=== PATIENT | male | born 1945 | race Caucasian/White ===

== ENCOUNTER 2016-10-06 18:44 | Observation (INO) | payer OTHER ==
[~2016-10-06] VITALS: Ht 177.8 cm; Wt 76.3 kg
[~2016-10-06 18:44] MED LIST: ALBUTEROL2.5 MG/3 M IH; ASPIR-LOW81 MG PO; ASPIRIN81 M2 PO; ATENOLOL50 MG PO; ATORVASTATIN CA80 MG PO; AZITHROMYCIN500 M1 PO; Aspirin E.C. PO; Betapace,Sorine PO; CARDIZEM CD,CA120 MG PO; CARDIZEM CD120 MG PO; CARDIZEM30 MG PO; CARTIA XT120 MG PO; CELEXA40 MG PO; CEPHALEXIN500 MG PO; COMBIVENT RESPIM4 GM IH; Colace PO; Coumadin,Jantoven PO; DIGITEK250 MC2 PO; DIGOX250 MCG PO; DIGOXIN250 MCG PO; DULOXETINE HCL30 MG PO; ELAVIL50 MG PO; Elavil PO; FLOMAX0.4 MG PO; FLONASE16 G1 BOTH NARES; FLORANEX CHE1 TABLET PO; Flomax PO; GABAPENTIN300 MG PO; HYDROCODON-ACE1 EAC7 PO; HYDROXYZINE HCL10 MG PO; IPRATROPIU0.2 MG/1 M IH; KEFLEX500 MG PO; LEVAQUIN500 MG PO; LEVAQUIN750 MG PO; LEVOFLOXACIN750 MG PO; LO-DOSE ASPIRIN81 M2 PO; LOPRESSOR50 MG PO; LYRICA150 MG PO; Lanoxin,Digitek PO; Lasix PO; MELATIN3 MG PO; METOPROLOL TART50 MG PO; MOBIC15 MG PO; MOBIC7.5 MG PO; MOTRIN800 MG PO; Neurontin PO; OMEPRAZOLE20 MG PO; OMEPRAZOLE40 M1 PO; OXYCODONE HCL5 MG PO; PERCOCET 5/31 TABLET PO; PLAVIX75 MG PO; PREDNISONE10 M1 PO; PREDNISONE10 MG PO; PREDNISONE50 MG PO; PROPECIA1 MG PO; PROVENTIL,2.5 MG/3 M IH; PriLOSEC PO; Proventil,Ventolin H IH; ROXICODONE5 MG PO; SEROQUEL100 MG PO; SEROQUEL50 MG PO; SEROquel PO; SOTALOL80 MG PO; TENORMIN50 MG PO; Tenormin PO; ULTRAM50 MG PO; VENTOLIN HFA18 GM IH; VIBRAMYCIN100 MG PO; VOLTAREN 1% GE100 GM TP; WELLBUTRIN100 MG PO; WELLBUTRIN75 MG PO; ZITHROMAX Z-PA250 MG PO; ZOCOR80 MG PO; Zocor PO; [UNRECOGNIZED DRUG - OTHER] PO; celeXA PO
[2016-10-06 19:58] LABS: HEMATOCRIT 47.2 % (38.0-50.0); MCH 32.9 PG (29.0-34.0); MCHC 33.9 G/DL (30.0-36.0); MCV 97.1 FL (86-99); MEAN PLAT.VOLUME 9.9 uM^3 (9.0-12.4); PLATELET COUNT 174 K/uL (156-360); RBC DIS.WIDTH-CV 14.6 % (11.8-14.6); RBC DIS.WIDTH-SD 52.6 % (39-53); RED BLOOD COUNT 4.86 M/uL (4.00-5.50); WHITE BLOOD COUNT 8.1 K/uL (4.1-10.2)
[2016-10-06 19:59] LABS: CARBON DIOXIDE (BICARBONATE) 27.4 MEQ/L (20-31)
[2016-10-06 20:06] LABS: CHLORIDE 104 mEq/L (99-109); POTASSIUM 3.5 mEq/L (3.7-5.4); SODIUM 137 mEq/L (136-147)
[2016-10-06 20:08] LABS: GLUCOSE 118 mg/dL (70-99)
[2016-10-06 20:09] LABS: ANION GAP 9 MEQ/L (2-14)
[2016-10-06 20:12] LABS: GFR ESTIMATE (CALCULATED) > 59 mL/min/; UREA NITROGEN (BUN) 8 mg/dL (9-23)
[2016-10-06 20:18] LABS: TROP-I INTERPRETATION NEGATIVE; TROPONIN-I < 0.01 ng/mL (0.0-0.30)
[2016-10-06] MEDS ORDERED: CARDIZEM CD,CA120 MG PO (21:22)
[2016-10-06] MEDS ORDERED: METOPROLOL TART50 MG PO (21:23)
[2016-10-06] MEDS ORDERED: VOLTAREN 1% GE100 GM TP (21:25)
[2016-10-06] MEDS ORDERED: LYRICA150 MG PO (21:25)
[2016-10-06 22:05] LABS: ALKALINE PHOSPHATASE 141 IU/L (3-129)
[2016-10-06 22:06] LABS: ADD MIUA? YES; BILIRUBIN NEGATIVE; BLOOD NEGATIVE; COLOR YELLOW ((YELLOW)); GLUCOSE (STRIP) NEGATIVE; KETONES NEGATIVE; LEUKOCYTES TRACE; NITRITE NEGATIVE; PROTEIN (STRIP) NEGATIVE
[2016-10-06 22:07] LABS: DIRECT BILIRUBIN 0.4 mg/dL (0.0-0.3)
[2016-10-06 22:17] LABS: BACTERIA RARE /HPF; EPITHELIAL CELLS RARE /HPF; MUCUS TRACE /LPF; RED BLOOD CELLS 0-5 /HPF (0-5)
[2016-10-06 22:56] VITALS: BP 111/78
[2016-10-06 23:09] LABS: HDL CHOLESTEROL 45 MG/DL (Desirable>=40); LDL CHOLESTEROL 47 mg/dL (Desirable<100); NON-HDL CHOLESTEROL 66 mg/dL (Desirable<160); TOTAL CHOLESTEROL 111 mg/dL (Desirable<200); TRIGLYCERIDES 95 MG/DL (Normal: <150)
[2016-10-07 03:07] LABS: METH RESISTANT S AUREUS PCR NEGATIVE (NEGATIVE)
[2016-10-07 03:15] LABS: PROBE CHECK PASS; SPECIMEN PROCESSING CONTROL PASS
[2016-10-07 04:23] VITALS: BP 106/58
[2016-10-07 07:19] LABS: Estimated Average Glucose 91 mg/dL (70-123); HEMOGLOBIN A1c (GLYCOHEMOGLOB) 4.8 % HGB (Below 5.7)
[2016-10-07 08:00] VITALS: BP 108/65
[2016-10-07] MEDS ORDERED: LYRICA150 MG PO (08:27)
[2016-10-07] MEDS ORDERED: CIPROFLOXACIN H10 ML RIGHT EYE (08:30)
[2016-10-07] MEDS ORDERED: VANTIN200 MG PO (09:04)
[2016-10-07] MEDS ORDERED: CEFTIN500 MG PO (14:38)
[2016-10-07 15:07] VITALS: BP 119/65
== END 2016-10-07 15:27 | disposition home or self-care (01) ==
LOC: EME 18:44 → 5WEST 21:17 → EDOF 21:17 → 5WEST 22:57
PROVIDERS: Emergency Medicine; Hospitalist
DX: R42 Dizziness and giddiness (principal); N39.0 Urinary tract infection, site not specified; I45.10 Unspecified right bundle-branch block; R07.9 Chest pain, unspecified; I48.0 Paroxysmal atrial fibrillation; R53.1 Weakness; I10 Essential (primary) hypertension; I25.10 Atherosclerotic heart disease of native coronary artery without angina pectoris; Z86.73 Personal history of transient ischemic attack (TIA), and cerebral infarction without residual deficits; J44.9 Chronic obstructive pulmonary disease, unspecified; E78.5 Hyperlipidemia, unspecified; H10.9 Unspecified conjunctivitis; F17.200 Nicotine dependence, unspecified, uncomplicated; F12.90 Cannabis use, unspecified, uncomplicated; Z95.5 Presence of coronary angioplasty implant and graft
CPT/HCPCS: 70450; 71010; 74176; 80048; 80061; 80076; 81003; 82803; 83036; 83605; 83880; 84484; 85027; 87040; 87086; 87641; 93005; 99202; 99281; 99285; G0378; J0696; J1650; J2270; J2405; J7050

== ENCOUNTER 2016-10-12 20:23 | Emergency (ER) | payer OTHER ==
[~2016-10-12] VITALS: Ht 180.3 cm; Wt 78.3 kg
[~2016-10-12 20:23] MED LIST changes: +CEFTIN500 MG PO; +CIPROFLOXACIN H10 ML RIGHT EYE; +VANTIN200 MG PO
[2016-10-12 21:10] LABS: HEMATOCRIT 45.7 % (38.0-50.0); MCH 33.3 PG (29.0-34.0); MCHC 34.1 G/DL (30.0-36.0); MCV 97.6 FL (86-99); MEAN PLAT.VOLUME 10.4 uM^3 (9.0-12.4); PLATELET COUNT 202 K/uL (156-360); RBC DIS.WIDTH-CV 14.6 % (11.8-14.6); RED BLOOD COUNT 4.68 M/uL (4.00-5.50); WHITE BLOOD COUNT 7.2 K/uL (4.1-10.2)
[2016-10-12 21:18] LABS: CHLORIDE 105 mEq/L (99-109); POTASSIUM 4.2 mEq/L (3.7-5.4); SODIUM 139 mEq/L (136-147)
[2016-10-12 21:20] LABS: GLUCOSE 109 mg/dL (70-99)
[2016-10-12 21:21] LABS: ANION GAP 9 MEQ/L (2-14)
[2016-10-12 21:24] LABS: GFR ESTIMATE (CALCULATED) 53 mL/min/
[2016-10-12 21:25] LABS: UREA NITROGEN (BUN) 10 mg/dL (9-23)
[2016-10-12 21:32] LABS: TROP-I INTERPRETATION NEGATIVE; TROPONIN-I < 0.01 ng/mL (0.0-0.30)
[2016-10-12] MEDS ORDERED: LYRICA150 MG PO (22:42)
[2016-10-12 22:59] VITALS: BP 132/78
== END 2016-10-12 23:30 | disposition home or self-care (01) ==
LOC: EME → EDBD 20:23 → EME 20:23
PROVIDERS: Emergency Medicine
DX: G62.9 Polyneuropathy, unspecified (principal); I48.91 Unspecified atrial fibrillation; I69.354 Hemiplegia and hemiparesis following cerebral infarction affecting left non-dominant side; I50.9 Heart failure, unspecified; F32.9 Major depressive disorder, single episode, unspecified; J44.9 Chronic obstructive pulmonary disease, unspecified; E78.5 Hyperlipidemia, unspecified; I25.2 Old myocardial infarction; K21.9 Gastro-esophageal reflux disease without esophagitis; I25.10 Atherosclerotic heart disease of native coronary artery without angina pectoris; Z95.5 Presence of coronary angioplasty implant and graft; F17.200 Nicotine dependence, unspecified, uncomplicated; G89.29 Other chronic pain; N28.9 Disorder of kidney and ureter, unspecified; R06.02 Shortness of breath
CPT/HCPCS: 71010; 80048; 84484; 85027; 93005; 99281; 99284

== ENCOUNTER 2016-10-16 10:08 | Inpatient (IN) | payer OTHER ==
[~2016-10-16] VITALS: Ht 180.3 cm; Wt 74.5 kg
[2016-10-16 11:15] LABS: BASOPHIL COUNT 0.1 K/uL (0-0.1); EOSINOPHIL (%) 3.3 % (0-5); EOSINOPHIL COUNT 0.3 K/uL (0-0.3); HEMATOCRIT 51.4 % (38.0-50.0); IMMATURE GRANULOCYTE (%) 0.3 % (0.0-0.7); INSTRUMENT ABS NEUTROPHIL CT 4.9 K/uL; LYMPHOCYTE COUNT 1.8 K/uL (1.0-2.8); MCH 33.1 PG (29.0-34.0); MCHC 33.9 G/DL (30.0-36.0); MCV 97.9 FL (86-99); MEAN PLAT.VOLUME 10.2 uM^3 (9.0-12.4); MONOCYTE (%) 10.3 % (3-12); MONOCYTE COUNT 0.8 K/uL (0-0.8); NEUTROPHIL (%) 62.7 % (45-76); NEUTROPHIL COUNT 4.9 K/uL (1.8-6.4); RBC DIS.WIDTH-CV 14.4 % (11.8-14.6); RBC DIS.WIDTH-SD 52.1 % (39-53); RED BLOOD COUNT 5.25 M/uL (4.00-5.50); WHITE BLOOD COUNT 7.8 K/uL (4.1-10.2)
[2016-10-16 11:17] LABS: PLATELET COUNT 284 K/uL (156-360)
[2016-10-16 11:24] LABS: INTER. NORMALIZED RATIO 1.1
[2016-10-16 12:21] LABS: CHLORIDE 103 mEq/L (99-109); POTASSIUM 4.5 mEq/L (3.7-5.4); SODIUM 138 mEq/L (136-147)
[2016-10-16 12:22] LABS: GLUCOSE 87 mg/dL (70-99)
[2016-10-16 12:24] LABS: ANION GAP 7 MEQ/L (2-14)
[2016-10-16 12:26] LABS: GFR ESTIMATE (CALCULATED) 58 mL/min/
[2016-10-16 12:27] LABS: UREA NITROGEN (BUN) 8 mg/dL (9-23)
[2016-10-16 12:28] LABS: TROP-I INTERPRETATION NEGATIVE; TROPONIN-I < 0.01 ng/mL (0.0-0.30)
[2016-10-16] MEDS ORDERED: FLOMAX0.4 MG PO (15:18)
[2016-10-16] MEDS ORDERED: MELATIN3 MG PO (15:18)
[2016-10-16 16:15] VITALS: BP 177/96
[2016-10-16 17:03] LABS: POINT-OF-CARE METER ID UU14149397
[2016-10-16 20:28] VITALS: BP 131/70
[2016-10-16 23:51] VITALS: BP 136/94
[2016-10-17 05:23] VITALS: BP 147/93
[2016-10-17 06:32] LABS: POINT-OF-CARE METER ID UU14149397
[2016-10-17 06:56] LABS: POINT-OF-CARE METER ID UU14149397
[2016-10-17 07:35] VITALS: BP 116/82
[2016-10-17 07:48] LABS: MCH 32.8 PG (29.0-34.0); MCHC 32.8 G/DL (30.0-36.0); MCV 99.8 FL (86-99); MEAN PLAT.VOLUME 10.3 uM^3 (9.0-12.4); PLATELET COUNT 241 K/uL (156-360); RBC DIS.WIDTH-CV 14.6 % (11.8-14.6); RBC DIS.WIDTH-SD 54.3 % (39-53); RED BLOOD COUNT 4.61 M/uL (4.00-5.50)
[2016-10-17 08:12] LABS: ANION GAP 9 MEQ/L (2-14); CHLORIDE 102 MEQ/L (99-109); GFR ESTIMATE (CALCULATED) 58 mL/min/; POTASSIUM 4.3 MEQ/L (3.7-5.4); SAMPLE HEMOLYSIS CHECK 0; SAMPLE ICTERIC CHECK 0; SAMPLE LIPEMIA CHECK 0; SODIUM 136 MEQ/L (136-147); UREA NITROGEN (BUN) 14 mg/dL (9-23)
[2016-10-17 08:38] LABS: GLUCOSE 120 mg/dL (70-99)
[2016-10-17 11:30] VITALS: BP 131/84
[2016-10-17 16:00] VITALS: BP 112/78
[2016-10-17 22:31] LABS: POINT-OF-CARE METER ID UU14188577
[2016-10-18 00:05] VITALS: BP 102/74
[2016-10-18 07:39] LABS: POINT-OF-CARE METER ID UU14149397
[2016-10-18 08:00] VITALS: BP 109/71
[2016-10-18 11:52] LABS: POINT-OF-CARE METER ID UU14149397
[2016-10-18 15:43] VITALS: BP 126/85
[2016-10-18 16:43] LABS: POINT-OF-CARE METER ID UU14149397
[2016-10-19] VITALS: BP 119/76
[2016-10-19 07:02] LABS: POINT-OF-CARE METER ID UU14149397
[2016-10-19 07:50] VITALS: BP 118/67
[2016-10-19 11:33] LABS: POINT-OF-CARE METER ID UU14149397
[2016-10-19 16:46] VITALS: BP 130/68
[2016-10-19 18:34] LABS: ADD MIUA? YES; BILIRUBIN NEGATIVE; BLOOD NEGATIVE; COLOR YELLOW ((YELLOW)); GLUCOSE (STRIP) NEGATIVE; KETONES NEGATIVE; LEUKOCYTES SMALL; NITRITE NEGATIVE; PROTEIN (STRIP) NEGATIVE; UROBILINOGEN 0.2 MG/DL (0.2-1.0)
[2016-10-19 18:48] LABS: BACTERIA NONE SEEN /HPF; EPITHELIAL CELLS RARE /HPF; MUCUS NONE SEEN /LPF; WHITE BLOOD CELLS 0-5 /HPF (0-5)
[2016-10-19 23:56] VITALS: BP 131/77
[2016-10-20 07:54] VITALS: BP 127/76
[2016-10-20 10:24] LABS: HEMATOCRIT 44.1 % (38.0-50.0); MCH 33.3 PG (29.0-34.0); MCHC 32.7 G/DL (30.0-36.0); MCV 102.1 FL (86-99); RBC DIS.WIDTH-CV 14.6 % (11.8-14.6); RBC DIS.WIDTH-SD 55.5 % (39-53); RED BLOOD COUNT 4.32 M/uL (4.00-5.50); WHITE BLOOD COUNT 6.5 K/uL (4.1-10.2)
[2016-10-20 10:49] LABS: MEAN PLAT.VOLUME 10.5 uM^3 (9.0-12.4); PLAT.SUFFICIENCY ADEQUATE; PLATELET COUNT 259 K/uL (156-360)
[2016-10-20 10:54] LABS: ANION GAP 7 MEQ/L (2-14); CHLORIDE 102 MEQ/L (99-109); GFR ESTIMATE (CALCULATED) > 59 mL/min/; GLUCOSE 82 mg/dL (70-99); POTASSIUM 4.8 MEQ/L (3.7-5.4); SAMPLE HEMOLYSIS CHECK 0; SAMPLE ICTERIC CHECK 0; SAMPLE LIPEMIA CHECK 0; SODIUM 137 MEQ/L (136-147); UREA NITROGEN (BUN) 19 mg/dL (9-23)
[2016-10-20 15:30] VITALS: BP 131/78
[2016-10-21 00:19] VITALS: BP 124/68
[2016-10-21 08:51] VITALS: BP 126/70
[2016-10-21] MEDS ORDERED: ELIQUIS5 MG PO ×3 (12:06→13:21)
[2016-10-21] MEDS ORDERED: ENDOCET 5-3251 EACH PO (12:08)
[2016-10-21] MEDS ORDERED: LYRICA150 MG PO (12:08)
== END 2016-10-21 13:41 | disposition home health service (06) | DRG 176 ==
LOC: EME → EDBD 10:08 → EME 10:08 → EDOF 15:13 → 3EAST 15:13
PROVIDERS: Emergency Medicine; Internal Medicine; Physician Assistant; Urology
DX: I26.99 Other pulmonary embolism without acute cor pulmonale (principal); I69.354 Hemiplegia and hemiparesis following cerebral infarction affecting left non-dominant side; I48.92 Unspecified atrial flutter; J44.1 Chronic obstructive pulmonary disease with (acute) exacerbation; D75.1 Secondary polycythemia; C64.2 Malignant neoplasm of left kidney, except renal pelvis; G62.89 Other specified polyneuropathies; I48.2 Chronic atrial fibrillation; I10 Essential (primary) hypertension; R53.1 Weakness; Z91.14 Patient's other noncompliance with medication regimen; R91.8 Other nonspecific abnormal finding of lung field; I25.10 Atherosclerotic heart disease of native coronary artery without angina pectoris; E78.5 Hyperlipidemia, unspecified; K21.9 Gastro-esophageal reflux disease without esophagitis; F17.210 Nicotine dependence, cigarettes, uncomplicated; F12.90 Cannabis use, unspecified, uncomplicated; Z95.5 Presence of coronary angioplasty implant and graft; R09.02 Hypoxemia; G89.29 Other chronic pain
CPT/HCPCS: 71010; 71275; 76770; 80048; 81003; 82948; 83880; 84484; 85025; 85027; 85379; 85610; 85730; 87086; 93005; 93306; 93970; 97530 GO; 99281; 99285; J1815; J7030

== ENCOUNTER 2016-10-22 10:29 | Emergency (ER) | payer OTHER ==
[~2016-10-22] VITALS: Ht 177.8 cm; Wt 76.1 kg
[~2016-10-22 10:29] MED LIST changes: +ELIQUIS5 MG PO; +ENDOCET 5-3251 EACH PO
[2016-10-22 13:10] VITALS: BP 149/84
== END 2016-10-22 13:23 | disposition home or self-care (01) ==
LOC: EME → EDBD 10:29 → EDSEX 10:29 → EME 13:23
DX: I26.99 Other pulmonary embolism without acute cor pulmonale (principal); Z91.14 Patient's other noncompliance with medication regimen; M79.602 Pain in left arm; M79.605 Pain in left leg; R20.2 Paresthesia of skin; I48.91 Unspecified atrial fibrillation; E78.5 Hyperlipidemia, unspecified; J44.9 Chronic obstructive pulmonary disease, unspecified; Z79.82 Long term (current) use of aspirin; F17.200 Nicotine dependence, unspecified, uncomplicated
CPT/HCPCS: 99281; 99284

== ENCOUNTER 2016-10-30 09:55 | Emergency (ER) | payer OTHER ==
[~2016-10-30] VITALS: Ht 180.3 cm; Wt 89.1 kg
[2016-10-30 12:00] LABS: HEMATOCRIT 48.2 % (38.0-50.0); MCH 32.4 PG (29.0-34.0); MCHC 33.4 G/DL (30.0-36.0); RBC DIS.WIDTH-CV 14.5 % (11.8-14.6); RBC DIS.WIDTH-SD 52.2 % (39-53); RED BLOOD COUNT 4.97 M/uL (4.00-5.50); WHITE BLOOD COUNT 9.7 K/uL (4.1-10.2)
[2016-10-30 12:08] LABS: CHLORIDE 100 mEq/L (99-109); SODIUM 135 mEq/L (136-147)
[2016-10-30 12:10] LABS: GLUCOSE 71 mg/dL (70-99)
[2016-10-30 12:11] LABS: ANION GAP 12 MEQ/L (2-14)
[2016-10-30 12:14] LABS: GFR ESTIMATE (CALCULATED) > 59 mL/min/
[2016-10-30 12:15] LABS: UREA NITROGEN (BUN) 13 mg/dL (9-23)
[2016-10-30 12:18] LABS: TROP-I INTERPRETATION NEGATIVE; TROPONIN-I 0.03 ng/mL (0.0-0.30)
[2016-10-30 13:11] LABS: MEAN PLAT.VOLUME 10.3 uM^3 (9.0-12.4); PLAT.SUFFICIENCY INCREASED; PLATELET COUNT 223 K/uL (156-360)
[2016-10-30 13:51] VITALS: BP 132/94
== END 2016-10-30 13:51 | disposition home or self-care (01) ==
LOC: EME 09:55
DX: I48.91 Unspecified atrial fibrillation (principal); I26.99 Other pulmonary embolism without acute cor pulmonale; T46.1X6A Underdosing of calcium-channel blockers, initial encounter; Z91.120 Patient's intentional underdosing of medication regimen due to financial hardship; J44.9 Chronic obstructive pulmonary disease, unspecified; E78.5 Hyperlipidemia, unspecified; I50.9 Heart failure, unspecified; I25.10 Atherosclerotic heart disease of native coronary artery without angina pectoris; I25.2 Old myocardial infarction; Z95.5 Presence of coronary angioplasty implant and graft; K21.9 Gastro-esophageal reflux disease without esophagitis; F32.9 Major depressive disorder, single episode, unspecified; Z86.73 Personal history of transient ischemic attack (TIA), and cerebral infarction without residual deficits; F17.200 Nicotine dependence, unspecified, uncomplicated; Z85.828 Personal history of other malignant neoplasm of skin; Z79.01 Long term (current) use of anticoagulants; Z79.82 Long term (current) use of aspirin
CPT/HCPCS: 71020; 80048; 84484; 85027; 93005; 99281; 99284

== ENCOUNTER 2016-11-05 08:56 | Inpatient (IN) | payer OTHER ==
[~2016-11-05] VITALS: Ht 180.3 cm; Wt 78.2 kg
[2016-11-05 09:35] LABS: HEMATOCRIT 47.4 % (38.0-50.0); MCH 32.4 PG (29.0-34.0); MCHC 33.3 G/DL (30.0-36.0); MCV 97.3 FL (86-99); MEAN PLAT.VOLUME 10.2 uM^3 (9.0-12.4); PLATELET COUNT 175 K/uL (156-360); RBC DIS.WIDTH-CV 14.6 % (11.8-14.6); RBC DIS.WIDTH-SD 52.9 % (39-53); RED BLOOD COUNT 4.87 M/uL (4.00-5.50); WHITE BLOOD COUNT 7.3 K/uL (4.1-10.2)
[2016-11-05 09:45] LABS: INTER. NORMALIZED RATIO 1.1; PROTHROMBIN TIME 10.9 (9.2-11.2)
[2016-11-05 09:46] LABS: CHLORIDE 101 mEq/L (99-109); SODIUM 135 mEq/L (136-147)
[2016-11-05 09:48] LABS: GLUCOSE 84 mg/dL (70-99)
[2016-11-05 09:49] LABS: ANION GAP 12 MEQ/L (2-14)
[2016-11-05 09:52] LABS: GFR ESTIMATE (CALCULATED) > 59 mL/min/
[2016-11-05 09:53] LABS: UREA NITROGEN (BUN) 6 mg/dL (9-23)
[2016-11-05 09:59] LABS: TROP-I INTERPRETATION NEGATIVE; TROPONIN-I < 0.01 ng/mL (0.0-0.30)
[2016-11-05] MEDS ORDERED: CARDIZEM CD180 MG PO (12:51)
[2016-11-05] MEDS ORDERED: VOLTAREN 1% GE100 GM TP (12:51)
[2016-11-05] MEDS ORDERED: LYRICA75 MG PO (12:52)
[2016-11-05] MEDS ORDERED: ELIQUIS5 MG PO (12:53)
[2016-11-05 16:14] LABS: TROP-I INTERPRETATION NEGATIVE; TROPONIN-I < 0.01 ng/mL (0.0-0.30)
[2016-11-05 18:01] VITALS: BP 151/111
[2016-11-05 20:00] VITALS: BP 125/76
[2016-11-05 21:59] LABS: TROP-I INTERPRETATION NEGATIVE; TROPONIN-I < 0.01 ng/mL (0.0-0.30)
[2016-11-06] VITALS: BP 134/77
[2016-11-06 03:03] VITALS: BP 130/80
[2016-11-06 05:16] LABS: METH RESISTANT S AUREUS PCR NEGATIVE (NEGATIVE)
[2016-11-06 05:37] LABS: PROBE CHECK PASS; SPECIMEN PROCESSING CONTROL PASS
[2016-11-06 07:25] VITALS: BP 167/84
[2016-11-06 12:00] VITALS: BP 163/90
[2016-11-06 15:59] VITALS: BP 122/76
[2016-11-06 19:12] VITALS: BP 141/88
[2016-11-07 03:00] VITALS: BP 122/79
[2016-11-07 07:40] VITALS: BP 128/77
[2016-11-07] MEDS ORDERED: PREDNISONE10 MG PO (10:04)
[2016-11-07] MEDS ORDERED: NICOTINE PATCH1 EAC2 TD (10:04)
[2016-11-07] MEDS ORDERED: ADVAIR HFA120 INHALA IH (11:47)
[2016-11-07] MEDS ORDERED: PROVENTIL HFA6.7 GM IH (11:47)
[2016-11-07] MEDS ORDERED: ENDOCET 5-3251 EACH PO (11:52)
== END 2016-11-07 14:51 | disposition home health service (06) | DRG 191 ==
LOC: EME → EDBD 08:56 → EME 08:56 → EDOF 12:54 → 5WEST 17:41
PROVIDERS: Emergency Medicine; Hospitalist; Internal Medicine
DX: J44.1 Chronic obstructive pulmonary disease with (acute) exacerbation (principal); I69.354 Hemiplegia and hemiparesis following cerebral infarction affecting left non-dominant side; I48.91 Unspecified atrial fibrillation; I50.9 Heart failure, unspecified; I11.0 Hypertensive heart disease with heart failure; E78.5 Hyperlipidemia, unspecified; Z79.01 Long term (current) use of anticoagulants; K21.9 Gastro-esophageal reflux disease without esophagitis; F17.210 Nicotine dependence, cigarettes, uncomplicated; I25.10 Atherosclerotic heart disease of native coronary artery without angina pectoris; Z95.5 Presence of coronary angioplasty implant and graft; Z86.711 Personal history of pulmonary embolism; Z91.14 Patient's other noncompliance with medication regimen; I25.2 Old myocardial infarction
CPT/HCPCS: 71020; 71275; 80048; 84484; 85027; 85610; 85730; 87641; 93005; 94640; 94640 76; 99202; 99281; 99285; G0378; G8978 GP CJ; G8979 GP CH; J2930; J7512

== ENCOUNTER → 2016-12-15 | Outpatient (CLI) | payer OTHER ==
[~2016-12-15] MED LIST changes: +ADVAIR HFA120 INHALA IH; +CARDIZEM CD180 MG PO; +LYRICA75 MG PO; +NICOTINE PATCH1 EAC2 TD; +PROVENTIL HFA6.7 GM IH
== END | disposition home or self-care (01) ==
LOC: OPR 08:56 → EDSTATUS 10:00 → OPR 10:00
PROC: 0BJ0XZZ Inspection of Tracheobronchial Tree, External Approach (ICD-10-PCS; principal; 2016-12-15)
DX: R91.8 Other nonspecific abnormal finding of lung field (principal); Z53.8 Procedure and treatment not carried out for other reasons

== ENCOUNTER 2017-01-29 07:36 | Emergency (ER) | payer OTHER ==
[~2017-01-29] VITALS: Ht 177.8 cm; Wt 78.0 kg
[~2017-01-29 07:36] MED LIST changes: +CARTIA XT180 MG PO; +DUONEB 2.5-0.5 M3 ML AEROSOL; +LIDODERM 5% P1 PATCH TD; +LIPITOR80 MG PO; +MELATONIN3 MG PO; +SPIRIVA1 INHALATI IH; +WELLBUTRIN SR100 MG PO; +ZITHROMAX500 MG PO
[2017-01-29 08:29] LABS: HEMATOCRIT 50.1 % (38.0-50.0); MCH 32.8 PG (29.0-34.0); MCHC 33.9 G/DL (30.0-36.0); MCV 96.7 FL (86-99); MEAN PLAT.VOLUME 10.7 uM^3 (9.0-12.4); PLATELET COUNT 178 K/uL (156-360); RBC DIS.WIDTH-CV 14.1 % (11.8-14.6); RBC DIS.WIDTH-SD 50.3 % (39-53); RED BLOOD COUNT 5.18 M/uL (4.00-5.50); WHITE BLOOD COUNT 6.6 K/uL (4.1-10.2)
[2017-01-29 08:34] LABS: INTER. NORMALIZED RATIO 1.1; PROTHROMBIN TIME 11.9 SEC (10.2-12.9)
[2017-01-29 08:37] LABS: PTT 39.8 SEC (25-37)
[2017-01-29 08:44] LABS: CHLORIDE 102 mEq/L (99-109); POTASSIUM 4.7 mEq/L (3.7-5.4); SODIUM 139 mEq/L (136-147)
[2017-01-29 08:46] LABS: GLUCOSE 72 mg/dL (70-99)
[2017-01-29 08:47] LABS: ANION GAP 13 MEQ/L (2-14)
[2017-01-29 08:49] LABS: TROP-I INTERPRETATION NEGATIVE; TROPONIN-I < 0.01 ng/mL (0.0-0.30)
[2017-01-29 08:50] LABS: GFR ESTIMATE (CALCULATED) > 59 mL/min/
[2017-01-29 08:51] LABS: UREA NITROGEN (BUN) 8 mg/dL (9-23)
[2017-01-29] MEDS ORDERED: PREDNISONE50 MG PO (11:52)
[2017-01-29 12:48] VITALS: BP 128/78
== END 2017-01-29 12:49 | disposition home or self-care (01) ==
LOC: EME 07:36
PROVIDERS: Emergency Medicine
DX: I48.2 Chronic atrial fibrillation (principal); J44.1 Chronic obstructive pulmonary disease with (acute) exacerbation; I25.10 Atherosclerotic heart disease of native coronary artery without angina pectoris; I25.2 Old myocardial infarction; K21.9 Gastro-esophageal reflux disease without esophagitis; E78.5 Hyperlipidemia, unspecified; Z86.73 Personal history of transient ischemic attack (TIA), and cerebral infarction without residual deficits; F17.200 Nicotine dependence, unspecified, uncomplicated
CPT/HCPCS: 71020; 71275; 80048; 84484; 85027; 85610; 85730; 93005; 99281; 99284; J7030; J7644

== ENCOUNTER 2017-01-30 01:41 | Emergency (ER) | payer OTHER ==
[~2017-01-30] VITALS: Ht 179.1 cm; Wt 78.2 kg
[2017-01-30 02:08] LABS: HEMATOCRIT 44.6 % (38.0-50.0); MCH 33.3 PG (29.0-34.0); MCHC 35.2 G/DL (30.0-36.0); MCV 94.7 FL (86-99); MEAN PLAT.VOLUME 10.4 uM^3 (9.0-12.4); PLATELET COUNT 166 K/uL (156-360); RBC DIS.WIDTH-CV 13.7 % (11.8-14.6); RBC DIS.WIDTH-SD 48.7 % (39-53); RED BLOOD COUNT 4.71 M/uL (4.00-5.50); WHITE BLOOD COUNT 5.3 K/uL (4.1-10.2)
[2017-01-30 02:25] LABS: TROP-I INTERPRETATION NEGATIVE; TROPONIN-I 0.01 ng/mL (0.0-0.30)
[2017-01-30 02:41] LABS: CHLORIDE 105 mEq/L (99-109); POTASSIUM 4.3 mEq/L (3.7-5.4); SODIUM 138 mEq/L (136-147)
[2017-01-30 02:42] LABS: GLUCOSE 61 mg/dL (70-99)
[2017-01-30 02:44] LABS: ANION GAP 13 MEQ/L (2-14)
[2017-01-30 02:46] LABS: GFR ESTIMATE (CALCULATED) > 59 mL/min/
[2017-01-30 02:47] LABS: UREA NITROGEN (BUN) 7 mg/dL (9-23)
[2017-01-30 04:40] VITALS: BP 122/79
[2017-01-31] MEDS ORDERED: LEVAQUIN500 MG PO (02:35)
== END 2017-01-30 04:40 | disposition home or self-care (01) ==
LOC: EME → EDBD 01:41 → EME 04:40
DX: J44.9 Chronic obstructive pulmonary disease, unspecified (principal); I48.91 Unspecified atrial fibrillation; I10 Essential (primary) hypertension; T46.5X6A Underdosing of other antihypertensive drugs, initial encounter; Z91.128 Patient's intentional underdosing of medication regimen for other reason; F17.200 Nicotine dependence, unspecified, uncomplicated; I25.10 Atherosclerotic heart disease of native coronary artery without angina pectoris; E78.5 Hyperlipidemia, unspecified; I25.2 Old myocardial infarction; Z86.73 Personal history of transient ischemic attack (TIA), and cerebral infarction without residual deficits; Z85.828 Personal history of other malignant neoplasm of skin
CPT/HCPCS: 80048; 84484; 85027; 93005; 94640; 99281; 99285; J7512

== ENCOUNTER 2017-01-30 22:37 | Emergency (ER) | payer OTHER ==
[~2017-01-30] VITALS: Ht 177.8 cm; Wt 76.5 kg
[2017-01-30 23:18] LABS: EOSINOPHIL (%) 0 % (0-5); HEMATOCRIT 46.9 % (38.0-50.0); IMMATURE GRANULOCYTE (%) 0.5 % (0.0-0.7); INSTRUMENT ABS NEUTROPHIL CT 4.3 K/uL; MCH 32.7 PG (29.0-34.0); MCHC 34.3 G/DL (30.0-36.0); MCV 95.1 FL (86-99); MEAN PLAT.VOLUME 10.5 uM^3 (9.0-12.4); MONOCYTE (%) 5.3 % (3-12); MONOCYTE COUNT 0.3 K/uL (0-0.8); NEUTROPHIL (%) 75.8 % (45-76); NEUTROPHIL COUNT 4.3 K/uL (1.8-6.4); PLATELET COUNT 201 K/uL (156-360); RBC DIS.WIDTH-CV 13.7 % (11.8-14.6); RBC DIS.WIDTH-SD 48.4 % (39-53); RED BLOOD COUNT 4.93 M/uL (4.00-5.50); WHITE BLOOD COUNT 5.6 K/uL (4.1-10.2)
[2017-01-30 23:27] LABS: CHLORIDE 98 mEq/L (99-109); POTASSIUM 4.5 mEq/L (3.7-5.4); SODIUM 135 mEq/L (136-147)
[2017-01-30 23:29] LABS: GLUCOSE 74 mg/dL (70-99)
[2017-01-30 23:30] LABS: ANION GAP 17 MEQ/L (2-14)
[2017-01-30 23:33] LABS: GFR ESTIMATE (CALCULATED) > 59 mL/min/
[2017-01-30 23:34] LABS: UREA NITROGEN (BUN) 9 mg/dL (9-23)
[2017-01-30 23:38] LABS: TROP-I INTERPRETATION NEGATIVE; TROPONIN-I < 0.01 ng/mL (0.0-0.30)
[2017-01-31 02:17] LABS: TROP-I INTERPRETATION NEGATIVE; TROPONIN-I < 0.01 ng/mL (0.0-0.30)
[2017-01-31] MEDS ORDERED: LEVAQUIN500 MG PO (02:35)
[2017-01-31 03:07] VITALS: BP 115/76
== END 2017-01-31 03:08 | disposition home or self-care (01) ==
LOC: EME 22:37
PROVIDERS: Emergency Medicine
DX: J44.1 Chronic obstructive pulmonary disease with (acute) exacerbation (principal); I69.398 Other sequelae of cerebral infarction; G89.29 Other chronic pain; I48.91 Unspecified atrial fibrillation; I45.10 Unspecified right bundle-branch block; I10 Essential (primary) hypertension; E78.5 Hyperlipidemia, unspecified; Z95.5 Presence of coronary angioplasty implant and graft; Z86.711 Personal history of pulmonary embolism; Z79.01 Long term (current) use of anticoagulants; Z79.02 Long term (current) use of antithrombotics/antiplatelets; F17.200 Nicotine dependence, unspecified, uncomplicated
CPT/HCPCS: 71020; 80048 91; 83880; 84484; 85025; 93005; 94640; 99281; 99285; J1100

== ENCOUNTER 2017-01-31 22:59 | Inpatient (IN) | payer OTHER ==
[~2017-01-31] VITALS: Ht 179.1 cm; Wt 78.2 kg
[2017-02-01 00:23] LABS: EOSINOPHIL (%) 0 % (0-5); HEMATOCRIT 43.3 % (38.0-50.0); IMMATURE GRANULOCYTE (%) 0.2 % (0.0-0.7); INSTRUMENT ABS NEUTROPHIL CT 4.2 K/uL; LYMPHOCYTE COUNT 0.6 K/uL (1.0-2.8); MCH 32.5 PG (29.0-34.0); MCHC 35.1 G/DL (30.0-36.0); MCV 92.5 FL (86-99); MEAN PLAT.VOLUME 10.2 uM^3 (9.0-12.4); MONOCYTE (%) 4.6 % (3-12); MONOCYTE COUNT 0.2 K/uL (0-0.8); NEUTROPHIL (%) 83.7 % (45-76); NEUTROPHIL COUNT 4.2 K/uL (1.8-6.4); PLATELET COUNT 195 K/uL (156-360); RBC DIS.WIDTH-CV 13.8 % (11.8-14.6); RBC DIS.WIDTH-SD 46.6 % (39-53); RED BLOOD COUNT 4.68 M/uL (4.00-5.50)
[2017-02-01 00:34] LABS: CHLORIDE 98 mEq/L (99-109); POTASSIUM 4.1 mEq/L (3.7-5.4); SODIUM 134 mEq/L (136-147)
[2017-02-01 00:37] LABS: ANION GAP 20 MEQ/L (2-14); GLUCOSE 98 mg/dL (70-99)
[2017-02-01 00:39] LABS: GFR ESTIMATE (CALCULATED) > 59 mL/min/
[2017-02-01 00:40] LABS: UREA NITROGEN (BUN) 14 mg/dL (9-23)
[2017-02-01 00:44] LABS: TROP-I INTERPRETATION NEGATIVE; TROPONIN-I < 0.01 ng/mL (0.0-0.30)
[2017-02-01 08:31] LABS: HEMATOCRIT 43.2 % (38.0-50.0); MCH 32.8 PG (29.0-34.0); MCHC 35.2 G/DL (30.0-36.0); MCV 93.1 FL (86-99); PLATELET COUNT 166 K/uL (156-360); RBC DIS.WIDTH-SD 47.6 % (39-53); RED BLOOD COUNT 4.64 M/uL (4.00-5.50); WHITE BLOOD COUNT 7.4 K/uL (4.1-10.2)
[2017-02-01 08:39] LABS: CHLORIDE 99 mEq/L (99-109); POTASSIUM 4.4 mEq/L (3.7-5.4); SODIUM 138 mEq/L (136-147)
[2017-02-01 08:41] LABS: GLUCOSE 110 mg/dL (70-99)
[2017-02-01 08:42] LABS: ANION GAP 14 MEQ/L (2-14)
[2017-02-01 08:43] LABS: TOTAL BILIRUBIN 0.6 mg/dL (0.0-1.0)
[2017-02-01 08:45] LABS: ALKALINE PHOSPHATASE 85 IU/L (3-129); GFR ESTIMATE (CALCULATED) > 59 mL/min/
[2017-02-01 08:46] LABS: UREA NITROGEN (BUN) 16 mg/dL (9-23)
[2017-02-01 17:30] VITALS: BP 154/95
[2017-02-01 19:00] VITALS: BP 130/79
[2017-02-02] VITALS (9 sets, daily range): BP systolic 104–136; BP diastolic 66–87
[2017-02-02 06:48] LABS: EOSINOPHIL (%) 0 % (0-5); HEMATOCRIT 41.7 % (38.0-50.0); IMMATURE GRANULOCYTE (%) 0.4 % (0.0-0.7); INSTRUMENT ABS NEUTROPHIL CT 5.3 K/uL; LYMPHOCYTE COUNT 1.3 K/uL (1.0-2.8); MCH 32.6 PG (29.0-34.0); MCHC 33.3 G/DL (30.0-36.0); MEAN PLAT.VOLUME 11.3 uM^3 (9.0-12.4); MONOCYTE COUNT 0.7 K/uL (0-0.8); NEUTROPHIL (%) 71.3 % (45-76); NEUTROPHIL COUNT 5.3 K/uL (1.8-6.4); PLATELET COUNT 140 K/uL (156-360); RBC DIS.WIDTH-CV 14.8 % (11.8-14.6); RBC DIS.WIDTH-SD 53.5 % (39-53); RED BLOOD COUNT 4.27 M/uL (4.00-5.50); WHITE BLOOD COUNT 7.4 K/uL (4.1-10.2)
[2017-02-02 06:49] LABS: MCV 97.7 FL (86-99)
[2017-02-02 07:01] LABS: ANION GAP 9 MEQ/L (2-14); CHLORIDE 102 MEQ/L (99-109); GFR ESTIMATE (CALCULATED) > 59 mL/min/; GLUCOSE 85 mg/dL (70-99); POTASSIUM 4.9 MEQ/L (3.7-5.4); SAMPLE HEMOLYSIS CHECK 3; SAMPLE ICTERIC CHECK 0; SAMPLE LIPEMIA CHECK 0; SODIUM 137 MEQ/L (136-147); UREA NITROGEN (BUN) 24 mg/dL (9-23)
[2017-02-03 08:30] VITALS: BP 125/82
[2017-02-03] MEDS ORDERED: VENTOLIN HFA18 GM IH (11:09)
[2017-02-03] MEDS ORDERED: DUONEB 2.5-0.5 M3 ML AEROSOL (11:09)
[2017-02-03] MEDS ORDERED: SPIRIVA1 INHALATI IH (11:09)
[2017-02-03] MEDS ORDERED: ADVAIR HFA120 INHALA IH (11:09)
[2017-02-03] MEDS ORDERED: LYRICA150 MG PO (11:09)
[2017-02-03] MEDS ORDERED: VOLTAREN 1% GE100 GM TP (11:09)
[2017-02-03] MEDS ORDERED: CARTIA XT180 MG PO (11:09)
[2017-02-03] MEDS ORDERED: PREDNISONE10 MG PO (11:09)
[2017-02-03] MEDS ORDERED: ELIQUIS5 MG PO (11:09)
[2017-02-03 12:18] VITALS: BP 134/73
== END 2017-02-03 16:01 | disposition home or self-care (01) | DRG 181 ==
LOC: EME → EDBD 22:59 → EME 22:59 → 5WEST 02-01 05:07 → EDOF 02-01 05:07 → CANRESERV 02-01 05:08 → ENRESERV 02-01 05:08 → CANRESERV 02-01 12:57 → ENRESERV 02-01 14:50 → 5WEST 02-01 17:21 → ENRESERV 02-02 12:12 → CANRESERV 02-02 12:12 → ENPENDDIS 02-03 → 5WEST 02-03 16:01
PROVIDERS: Emergency Medicine; Internal Medicine
PROC: 0BBG3ZX Excision of Left Upper Lung Lobe, Percutaneous Approach, Diagnostic (ICD-10-PCS; principal; 2017-02-02)
DX: C34.12 Malignant neoplasm of upper lobe, left bronchus or lung (principal); J44.1 Chronic obstructive pulmonary disease with (acute) exacerbation; I11.0 Hypertensive heart disease with heart failure; I50.9 Heart failure, unspecified; I69.354 Hemiplegia and hemiparesis following cerebral infarction affecting left non-dominant side; I25.10 Atherosclerotic heart disease of native coronary artery without angina pectoris; Z95.5 Presence of coronary angioplasty implant and graft; Z91.19 Patient's noncompliance with other medical treatment and regimen; E78.5 Hyperlipidemia, unspecified; E87.1 Hypo-osmolality and hyponatremia; Z86.711 Personal history of pulmonary embolism; I48.2 Chronic atrial fibrillation; F17.210 Nicotine dependence, cigarettes, uncomplicated; F12.90 Cannabis use, unspecified, uncomplicated; K21.9 Gastro-esophageal reflux disease without esophagitis; N28.9 Disorder of kidney and ureter, unspecified; E11.9 Type 2 diabetes mellitus without complications; Z79.01 Long term (current) use of anticoagulants; I25.2 Old myocardial infarction
CPT/HCPCS: 71010; 71020; 77012; 80048; 80048 91; 80053; 83880; 84484; 85025; 85027; 88305; 88341 TC; 88342 TC; 93005; 94640; 94640 76; 94799; 99202; 99281; 99285; G0378; J1100; J1170; J1644; J3010; J7030; J7512

== ENCOUNTER 2017-02-05 01:40 | Inpatient (IN) | payer OTHER ==
[~2017-02-05] VITALS: Ht 177.8 cm; Wt 78.9 kg
[2017-02-05 02:42] LABS: CARBON DIOXIDE (BICARBONATE) 22.9 MEQ/L (20-31)
[2017-02-05 02:43] LABS: HEMATOCRIT 41.1 % (38.0-50.0); MCH 33.1 PG (29.0-34.0); MCHC 34.5 G/DL (30.0-36.0); MCV 95.8 FL (86-99); MEAN PLAT.VOLUME 10.1 uM^3 (9.0-12.4); PLATELET COUNT 156 K/uL (156-360); RBC DIS.WIDTH-CV 14.5 % (11.8-14.6); RBC DIS.WIDTH-SD 51.2 % (39-53); RED BLOOD COUNT 4.29 M/uL (4.00-5.50); WHITE BLOOD COUNT 6.4 K/uL (4.1-10.2)
[2017-02-05 02:57] LABS: CHLORIDE 106 mEq/L (99-109); POTASSIUM 4.1 mEq/L (3.7-5.4); SODIUM 137 mEq/L (136-147)
[2017-02-05 02:58] LABS: GLUCOSE 103 mg/dL (70-99)
[2017-02-05 03:00] LABS: ANION GAP 13 MEQ/L (2-14)
[2017-02-05 03:02] LABS: GFR ESTIMATE (CALCULATED) > 59 mL/min/
[2017-02-05 03:03] LABS: UREA NITROGEN (BUN) 12 mg/dL (9-23)
[2017-02-05 03:07] LABS: TROP-I INTERPRETATION NEGATIVE; TROPONIN-I < 0.01 ng/mL (0.0-0.30)
[2017-02-05 10:18] LABS: ADD MIUA? NO; BILIRUBIN NEGATIVE; BLOOD NEGATIVE; COLOR YELLOW ((YELLOW)); GLUCOSE (STRIP) NEGATIVE; KETONES NEGATIVE; LEUKOCYTES NEGATIVE; NITRITE NEGATIVE; PROTEIN (STRIP) NEGATIVE; SPECIFIC GRAVITY 1.011 (1.000-1.030); UCUL ADDED? NO; UROBILINOGEN 0.2 MG/DL (0.2-1.0)
[2017-02-05 12:12] VITALS: BP 151/84
[2017-02-05 20:00] VITALS: BP 137/84
[2017-02-05 22:08] LABS: METH RESISTANT S AUREUS PCR POSITIVE (NEGATIVE)
[2017-02-05 22:27] LABS: PROBE CHECK PASS
[2017-02-06] VITALS (7 sets, daily range): BP systolic 128–157; BP diastolic 68–89
[2017-02-06 06:01] LABS: HEMATOCRIT 39.8 % (38.0-50.0); MCH 32.7 PG (29.0-34.0); MCHC 33.2 G/DL (30.0-36.0); MCV 98.5 FL (86-99); MEAN PLAT.VOLUME 10.5 uM^3 (9.0-12.4); PLATELET COUNT 189 K/uL (156-360); RBC DIS.WIDTH-CV 14.9 % (11.8-14.6); RBC DIS.WIDTH-SD 54.7 % (39-53); RED BLOOD COUNT 4.04 M/uL (4.00-5.50); WHITE BLOOD COUNT 10.9 K/uL (4.1-10.2)
[2017-02-06 06:45] LABS: ANION GAP 8 MEQ/L (2-14); CHLORIDE 104 MEQ/L (99-109); GFR ESTIMATE (CALCULATED) > 59 mL/min/; GLUCOSE 119 mg/dL (70-99); POTASSIUM 4.9 MEQ/L (3.7-5.4); SAMPLE HEMOLYSIS CHECK 0; SAMPLE ICTERIC CHECK 0; SAMPLE LIPEMIA CHECK 0; SODIUM 135 MEQ/L (136-147)
[2017-02-06 06:59] LABS: UREA NITROGEN (BUN) 26 mg/dL (9-23)
[2017-02-07] VITALS: BP 120/72
[2017-02-07 05:17] LABS: EOSINOPHIL (%) 0 % (0-5); HEMATOCRIT 39.1 % (38.0-50.0); IMMATURE GRANULOCYTE (%) 1.1 % (0.0-0.7); IMMATURE GRANULOCYTE COUNT 0.1 K/uL; INSTRUMENT ABS NEUTROPHIL CT 7.2 K/uL; LYMPHOCYTE COUNT 1.7 K/uL (1.0-2.8); MCH 34.2 PG (29.0-34.0); MCHC 34.5 G/DL (30.0-36.0); MEAN PLAT.VOLUME 10.7 uM^3 (9.0-12.4); MONOCYTE (%) 11.5 % (3-12); MONOCYTE COUNT 1.2 K/uL (0-0.8); NEUTROPHIL COUNT 7.2 K/uL (1.8-6.4); PLATELET COUNT 196 K/uL (156-360); RBC DIS.WIDTH-CV 14.7 % (11.8-14.6); RBC DIS.WIDTH-SD 54.4 % (39-53); RED BLOOD COUNT 3.95 M/uL (4.00-5.50); WHITE BLOOD COUNT 10.2 K/uL (4.1-10.2)
[2017-02-07 06:00] LABS: ANION GAP 8 MEQ/L (2-14); CHLORIDE 104 MEQ/L (99-109); GFR ESTIMATE (CALCULATED) 53 mL/min/; POTASSIUM 4.6 MEQ/L (3.7-5.4); SAMPLE HEMOLYSIS CHECK 0; SAMPLE ICTERIC CHECK 0; SAMPLE LIPEMIA CHECK 0; SODIUM 135 MEQ/L (136-147); UREA NITROGEN (BUN) 39 mg/dL (9-23)
[2017-02-07 06:01] LABS: GLUCOSE 86 mg/dL (70-99)
[2017-02-07 09:25] VITALS: BP 136/78
[2017-02-07 12:10] VITALS: BP 121/87
[2017-02-07 16:14] VITALS: BP 141/76
[2017-02-07 23:53] VITALS: BP 156/86
[2017-02-08 04:33] VITALS: BP 138/81
[2017-02-08 05:31] LABS: EOSINOPHIL (%) 0.1 % (0-5); HEMATOCRIT 41.4 % (38.0-50.0); IMMATURE GRANULOCYTE (%) 1.7 % (0.0-0.7); IMMATURE GRANULOCYTE COUNT 0.2 K/uL; INSTRUMENT ABS NEUTROPHIL CT 5.9 K/uL; LYMPHOCYTE COUNT 1.8 K/uL (1.0-2.8); MCH 32.5 PG (29.0-34.0); MCHC 32.6 G/DL (30.0-36.0); MCV 99.5 FL (86-99); MEAN PLAT.VOLUME 10.1 uM^3 (9.0-12.4); MONOCYTE (%) 13.9 % (3-12); MONOCYTE COUNT 1.3 K/uL (0-0.8); NEUTROPHIL (%) 64.9 % (45-76); NEUTROPHIL COUNT 5.9 K/uL (1.8-6.4); PLATELET COUNT 229 K/uL (156-360); RBC DIS.WIDTH-CV 14.6 % (11.8-14.6); RBC DIS.WIDTH-SD 53.5 % (39-53); RED BLOOD COUNT 4.16 M/uL (4.00-5.50); WHITE BLOOD COUNT 9.1 K/uL (4.1-10.2)
[2017-02-08 05:56] LABS: ANION GAP 8 MEQ/L (2-14); CHLORIDE 104 MEQ/L (99-109); GFR ESTIMATE (CALCULATED) 58 mL/min/; GLUCOSE 87 mg/dL (70-99); SAMPLE HEMOLYSIS CHECK 0; SAMPLE ICTERIC CHECK 0; SAMPLE LIPEMIA CHECK 0; SODIUM 137 MEQ/L (136-147); UREA NITROGEN (BUN) 37 mg/dL (9-23)
[2017-02-08 08:22] VITALS: BP 177/92
[2017-02-08] MEDS ORDERED: AMOX TR-K CLV1 EAC4 PO (09:34)
[2017-02-08] MEDS ORDERED: SERTRALINE HCL25 MG PO (09:36)
[2017-02-08] MEDS ORDERED: LOPRESSOR25 MG PO (09:36)
[2017-02-08] MEDS ORDERED: PREDNISONE10 MG PO (09:37)
[2017-02-08] MEDS ORDERED: LYRICA150 MG PO (09:37)
[2017-02-08] MEDS ORDERED: OXYCODONE HCL5 MG PO (09:37)
== END 2017-02-08 11:24 | disposition home or self-care (01) | DRG 181 ==
LOC: EME → EDBD 01:40 → EME 01:40 → EDOF 05:19 → ENRESERV 05:22 → 5WEST 07:28 → CANRESERV 02-07 10:23 → ENRESERV 02-07 10:23 → ENPENDDIS 02-08 → 5WEST 02-08 11:24
PROVIDERS: Emergency Medicine; Hospitalist; Internal Medicine; Physician Assistant Medical
DX: C34.12 Malignant neoplasm of upper lobe, left bronchus or lung (principal); F43.23 Adjustment disorder with mixed anxiety and depressed mood; J44.1 Chronic obstructive pulmonary disease with (acute) exacerbation; E87.2 Acidosis; E78.5 Hyperlipidemia, unspecified; I48.2 Chronic atrial fibrillation; I25.10 Atherosclerotic heart disease of native coronary artery without angina pectoris; K21.9 Gastro-esophageal reflux disease without esophagitis; F12.90 Cannabis use, unspecified, uncomplicated; F17.210 Nicotine dependence, cigarettes, uncomplicated; I11.0 Hypertensive heart disease with heart failure; I50.9 Heart failure, unspecified; N28.89 Other specified disorders of kidney and ureter; G62.9 Polyneuropathy, unspecified; I45.10 Unspecified right bundle-branch block; R19.7 Diarrhea, unspecified; I69.354 Hemiplegia and hemiparesis following cerebral infarction affecting left non-dominant side; I25.2 Old myocardial infarction; Z95.5 Presence of coronary angioplasty implant and graft; Z86.711 Personal history of pulmonary embolism; Z79.01 Long term (current) use of anticoagulants; Z91.19 Patient's noncompliance with other medical treatment and regimen; E66.9 Obesity, unspecified
CPT/HCPCS: 70553; 71020; 80048; 81003; 82803; 83605; 83880; 84484; 85025; 85027; 87040; 87641; 93005; 94640; 94640 76; 99202; 99281; 99285; G0378; J1885; J2930; J7030; J7512

== ENCOUNTER 2017-02-24 18:02 | Observation (INO) | payer OTHER ==
[~2017-02-24] VITALS: Ht 179.1 cm; Wt 85.0 kg
[~2017-02-24 18:02] MED LIST changes: +AMOX TR-K CLV1 EAC4 PO; +LOPRESSOR25 MG PO; +SERTRALINE HCL25 MG PO
[2017-02-24 19:03] LABS: HEMATOCRIT 43.2 % (38.0-50.0); MCH 32.8 PG (29.0-34.0); MCHC 33.8 G/DL (30.0-36.0); MCV 97.1 FL (86-99); MEAN PLAT.VOLUME 9.6 uM^3 (9.0-12.4); PLATELET COUNT 199 K/uL (156-360); RBC DIS.WIDTH-CV 13.9 % (11.8-14.6); RBC DIS.WIDTH-SD 50.4 % (39-53); RED BLOOD COUNT 4.45 M/uL (4.00-5.50)
[2017-02-24 19:07] LABS: CARBON DIOXIDE (BICARBONATE) 27.3 MEQ/L (20-31)
[2017-02-24 19:16] LABS: CHLORIDE 101 mEq/L (99-109); POTASSIUM 3.7 mEq/L (3.7-5.4); SODIUM 133 mEq/L (136-147)
[2017-02-24 19:18] LABS: GLUCOSE 78 mg/dL (70-99)
[2017-02-24 19:19] LABS: ANION GAP 10 MEQ/L (2-14)
[2017-02-24 19:21] LABS: GFR ESTIMATE (CALCULATED) > 59 mL/min/; SERUM ETHYL ALCOHOL 164 mg/dL
[2017-02-24 19:22] LABS: UREA NITROGEN (BUN) 7 mg/dL (9-23)
[2017-02-24 19:26] LABS: TROP-I INTERPRETATION NEGATIVE; TROPONIN-I < 0.01 ng/mL (0.0-0.30)
[2017-02-24] MEDS ORDERED: ZITHROMAX Z-PA250 MG PO (19:33)
[2017-02-24] MEDS ORDERED: PROVENTIL HFA6.7 GM IH (19:33)
[2017-02-24] MEDS ORDERED: PREDNISONE20 MG PO (19:33)
[2017-02-24 23:28] VITALS: BP 129/63
[2017-02-25 03:31] VITALS: BP 141/63
[2017-02-25 05:31] LABS: METH RESISTANT S AUREUS PCR NEGATIVE (NEGATIVE)
[2017-02-25 05:32] LABS: PROBE CHECK PASS; SPECIMEN PROCESSING CONTROL PASS
[2017-02-25 07:57] VITALS: BP 148/79
[2017-02-25 11:57] VITALS: BP 154/72
== END 2017-02-25 16:29 | disposition home or self-care (01) ==
LOC: EME 18:02 → EDOF 21:42 → 5WEST 21:42 → ENRESERV 21:43 → 5WEST 23:24
PROVIDERS: Emergency Medicine; Internal Medicine
DX: J44.1 Chronic obstructive pulmonary disease with (acute) exacerbation (principal); R09.02 Hypoxemia; F17.210 Nicotine dependence, cigarettes, uncomplicated; R91.1 Solitary pulmonary nodule; I48.2 Chronic atrial fibrillation; I10 Essential (primary) hypertension; F12.90 Cannabis use, unspecified, uncomplicated; Z79.01 Long term (current) use of anticoagulants; Z79.891 Long term (current) use of opiate analgesic; I25.10 Atherosclerotic heart disease of native coronary artery without angina pectoris; Z95.5 Presence of coronary angioplasty implant and graft; E78.5 Hyperlipidemia, unspecified; K21.9 Gastro-esophageal reflux disease without esophagitis; I71.4 Abdominal aortic aneurysm, without rupture; Z95.820 Peripheral vascular angioplasty status with implants and grafts; I69.398 Other sequelae of cerebral infarction; R53.1 Weakness; Z91.19 Patient's noncompliance with other medical treatment and regimen
CPT/HCPCS: 71010; 80048; 82803; 83605; 83880; 84484; 85027; 87040; 87641; 93005; 94640; 94640 76; 94799; 99202; 99281; 99285; G0378; G0480; J2405; J7030; J7512; J7644

== ENCOUNTER 2017-02-26 15:26 | Emergency (ER) | payer OTHER ==
[~2017-02-26] VITALS: Ht 154.9 cm; Wt 86.8 kg
[~2017-02-26 15:26] MED LIST changes: +PREDNISONE20 MG PO
[2017-02-26 16:19] LABS: HEMATOCRIT 39.7 % (38.0-50.0); MCH 33.1 PG (29.0-34.0); MCHC 33.5 G/DL (30.0-36.0); MCV 98.8 FL (86-99); MEAN PLAT.VOLUME 9.6 uM^3 (9.0-12.4); PLATELET COUNT 173 K/uL (156-360); RBC DIS.WIDTH-CV 14.4 % (11.8-14.6); RBC DIS.WIDTH-SD 52.4 % (39-53); RED BLOOD COUNT 4.02 M/uL (4.00-5.50); WHITE BLOOD COUNT 7.1 K/uL (4.1-10.2)
[2017-02-26 16:28] LABS: CHLORIDE 106 mEq/L (99-109); POTASSIUM 4.1 mEq/L (3.7-5.4); SODIUM 139 mEq/L (136-147)
[2017-02-26 16:30] LABS: GLUCOSE 73 mg/dL (70-99)
[2017-02-26 16:31] LABS: ANION GAP 10 MEQ/L (2-14)
[2017-02-26 16:34] LABS: GFR ESTIMATE (CALCULATED) > 59 mL/min/
[2017-02-26 16:35] LABS: UREA NITROGEN (BUN) 8 mg/dL (9-23)
[2017-02-26 17:44] VITALS: BP 140/84
== END 2017-02-26 18:02 | disposition home or self-care (01) ==
LOC: EME → EDBD 15:26 → EME 15:26
PROVIDERS: Emergency Medicine
DX: I48.91 Unspecified atrial fibrillation (principal); J44.1 Chronic obstructive pulmonary disease with (acute) exacerbation; R53.1 Weakness; F17.200 Nicotine dependence, unspecified, uncomplicated
CPT/HCPCS: 80048; 85027; 93005; 99281; 99284

== ENCOUNTER 2017-04-05 02:45 | Inpatient (IN) | payer OTHER ==
[~2017-04-05] VITALS: Ht 177.8 cm; Wt 65.7 kg
[2017-04-05 03:24] LABS: HEMATOCRIT 43.3 % (38.0-50.0); MCH 33.2 PG (29.0-34.0); MCHC 33.7 G/DL (30.0-36.0); MCV 98.4 FL (86-99); MEAN PLAT.VOLUME 10.9 uM^3 (9.0-12.4); PLATELET COUNT 143 K/uL (156-360); RBC DIS.WIDTH-CV 13.3 % (11.8-14.6); WHITE BLOOD COUNT 6.7 K/uL (4.1-10.2)
[2017-04-05 03:29] LABS: PROTHROMBIN TIME 11.2 SEC (10.2-12.9)
[2017-04-05 03:32] LABS: PTT 34.3 SEC (25-37)
[2017-04-05 03:33] LABS: CHLORIDE 107 mEq/L (99-109); POTASSIUM 4.5 mEq/L (3.7-5.4); SODIUM 141 mEq/L (136-147)
[2017-04-05 03:35] LABS: GLUCOSE 96 mg/dL (70-99)
[2017-04-05 03:36] LABS: ANION GAP 8 MEQ/L (2-14)
[2017-04-05 03:37] LABS: TOTAL BILIRUBIN 0.4 mg/dL (0.0-1.0)
[2017-04-05 03:38] LABS: ALKALINE PHOSPHATASE 131 IU/L (3-129)
[2017-04-05 03:39] LABS: GFR ESTIMATE (CALCULATED) 45 mL/min/
[2017-04-05 03:40] LABS: UREA NITROGEN (BUN) 17 mg/dL (9-23)
[2017-04-05 03:42] LABS: LIPASE 65 U/L (1.0-51.0)
[2017-04-05 04:40] LABS: TROP-I INTERPRETATION NEGATIVE; TROPONIN-I 0.01 ng/mL (0.0-0.30)
[2017-04-05 07:05] VITALS: BP 150/93
[2017-04-05 07:40] VITALS: BP 150/93
[2017-04-05] MEDS ORDERED: DILTIAZEM 24HR120 MG PO (10:33)
[2017-04-05 11:25] VITALS: BP 129/81
[2017-04-05 12:26] LABS: TROP-I INTERPRETATION NEGATIVE; TROPONIN-I 0.02 ng/mL (0.0-0.30)
[2017-04-05 15:15] VITALS: BP 97/72
[2017-04-05 18:35] LABS: TROP-I INTERPRETATION NEGATIVE; TROPONIN-I 0.02 ng/mL (0.0-0.30)
[2017-04-05 19:34] VITALS: BP 134/89
[2017-04-05 23:28] VITALS: BP 111/74
[2017-04-06 04:18] VITALS: BP 121/68
[2017-04-06 05:25] LABS: HEMATOCRIT 42.3 % (38.0-50.0); MCH 32.6 PG (29.0-34.0); MCHC 32.6 G/DL (30.0-36.0); MEAN PLAT.VOLUME 10.7 uM^3 (9.0-12.4); PLATELET COUNT 139 K/uL (156-360); RBC DIS.WIDTH-CV 13.7 % (11.8-14.6); RBC DIS.WIDTH-SD 50.2 % (39-53); RED BLOOD COUNT 4.23 M/uL (4.00-5.50); WHITE BLOOD COUNT 6.9 K/uL (4.1-10.2)
[2017-04-06 05:35] LABS: HDL CHOLESTEROL 79 MG/DL (Desirable>=40); LDL CHOLESTEROL 59 mg/dL (Desirable<100); NON-HDL CHOLESTEROL 82 mg/dL (Desirable<160); TOTAL CHOLESTEROL 161 mg/dL (Desirable<200); TRIGLYCERIDES 115 MG/DL (Normal: <150)
[2017-04-06 06:41] LABS: Estimated Average Glucose 91 mg/dL (70-123); HEMOGLOBIN A1c (GLYCOHEMOGLOB) 4.8 % HGB (Below 5.7)
[2017-04-06 08:54] VITALS: BP 109/76
[2017-04-06 11:35] VITALS: BP 109/70
[2017-04-06 15:04] VITALS: BP 130/77
[2017-04-06 19:50] VITALS: BP 106/62
[2017-04-06 21:11] LABS: METH RESISTANT S AUREUS PCR POSITIVE (NEGATIVE)
[2017-04-06 21:12] LABS: PROBE CHECK PASS; SPECIMEN PROCESSING CONTROL PASS
[2017-04-06 22:16] VITALS: BP 131/73
[2017-04-07 02:54] VITALS: BP 112/60
[2017-04-07 09:06] VITALS: BP 146/82
[2017-04-07 17:22] VITALS: BP 131/73
[2017-04-07 18:50] VITALS: BP 134/65
[2017-04-07 19:20] VITALS: BP 122/54
[2017-04-08 00:21] VITALS: BP 115/72
[2017-04-08 04:00] VITALS: BP 108/82
[2017-04-08 07:46] VITALS: BP 102/59
[2017-04-08] MEDS ORDERED: ASPIR-LOW81 MG PO (11:25)
[2017-04-08] MEDS ORDERED: VENTOLIN HFA18 GM IH (11:25)
[2017-04-08] MEDS ORDERED: ELIQUIS5 MG PO (11:25)
[2017-04-08] MEDS ORDERED: SPIRIVA1 INHALATI IH (11:25)
[2017-04-08] MEDS ORDERED: ATORVASTATIN CA40 MG PO (11:25)
[2017-04-08] MEDS ORDERED: DILTIAZEM 24HR180 MG PO (11:25)
[2017-04-08] MEDS ORDERED: ADVAIR HFA120 INHALA IH (11:25)
== END 2017-04-08 14:30 | disposition home or self-care (01) | DRG 67 ==
LOC: EME → EDBD 02:45 → 4EAST 04:59 → EDOF 04:59 → ENRESERV 05:02 → 4EAST 07:05 → ENRESERV 04-06 17:34 → 5SOUTH 04-07 18:05
PROVIDERS: Emergency Medicine; Hospitalist
DX: I65.22 Occlusion and stenosis of left carotid artery (principal); I63.511 Cerebral infarction due to unspecified occlusion or stenosis of right middle cerebral artery; I48.2 Chronic atrial fibrillation; I50.9 Heart failure, unspecified; I69.354 Hemiplegia and hemiparesis following cerebral infarction affecting left non-dominant side; I11.0 Hypertensive heart disease with heart failure; E78.5 Hyperlipidemia, unspecified; I25.10 Atherosclerotic heart disease of native coronary artery without angina pectoris; F17.200 Nicotine dependence, unspecified, uncomplicated; K21.9 Gastro-esophageal reflux disease without esophagitis; F17.210 Nicotine dependence, cigarettes, uncomplicated; F12.90 Cannabis use, unspecified, uncomplicated; R26.9 Unspecified abnormalities of gait and mobility; J44.9 Chronic obstructive pulmonary disease, unspecified; E11.9 Type 2 diabetes mellitus without complications; C34.90 Malignant neoplasm of unspecified part of unspecified bronchus or lung; Z95.5 Presence of coronary angioplasty implant and graft; Z86.711 Personal history of pulmonary embolism; Z79.82 Long term (current) use of aspirin; Z85.828 Personal history of other malignant neoplasm of skin; Z82.0 Family history of epilepsy and other diseases of the nervous system; I25.2 Old myocardial infarction; Z91.14 Patient's other noncompliance with medication regimen; Z91.19 Patient's noncompliance with other medical treatment and regimen; I49.3 Ventricular premature depolarization; Z86.79 Personal history of other diseases of the circulatory system
CPT/HCPCS: 70450; 70551; 71020; 78582; 80053; 80061; 83036; 83690; 83880; 84484; 85027; 85610; 85730; 87641; 90686; 92610 GN; 93005; 93880; 94640; 94640 76; 95819; 97530 GO; 99202; 99281; 99285; A9540; A9567; J1940; J7040

== ENCOUNTER 2017-04-21 21:55 | Emergency (ER) | payer OTHER ==
[~2017-04-21] VITALS: Ht 177.8 cm; Wt 79.5 kg
[~2017-04-21 21:55] MED LIST changes: +ATORVASTATIN CA40 MG PO; +DILTIAZEM 24HR120 MG PO; +DILTIAZEM 24HR180 MG PO
[2017-04-21 22:48] LABS: BASOPHIL COUNT 0.1 K/uL (0-0.1); EOSINOPHIL (%) 1.8 % (0-5); EOSINOPHIL COUNT 0.1 K/uL (0-0.3); HEMATOCRIT 45.9 % (38.0-50.0); IMMATURE GRANULOCYTE (%) 0.3 % (0.0-0.7); INSTRUMENT ABS NEUTROPHIL CT 4.9 K/uL; LYMPHOCYTE COUNT 1.5 K/uL (1.0-2.8); MCH 33.5 PG (29.0-34.0); MCHC 35.3 G/DL (30.0-36.0); MEAN PLAT.VOLUME 10.3 uM^3 (9.0-12.4); MONOCYTE (%) 9.1 % (3-12); MONOCYTE COUNT 0.7 K/uL (0-0.8); NEUTROPHIL (%) 67.5 % (45-76); NEUTROPHIL COUNT 4.9 K/uL (1.8-6.4); RBC DIS.WIDTH-CV 12.5 % (11.8-14.6); RBC DIS.WIDTH-SD 43.6 % (39-53); RED BLOOD COUNT 4.83 M/uL (4.00-5.50); WHITE BLOOD COUNT 7.3 K/uL (4.1-10.2)
[2017-04-21 22:49] LABS: PLATELET COUNT 236 K/uL (156-360)
[2017-04-21 22:58] LABS: CHLORIDE 101 mEq/L (99-109); POTASSIUM 4.1 mEq/L (3.7-5.4); SODIUM 135 mEq/L (136-147)
[2017-04-21 22:59] LABS: MAGNESIUM 1.6 mg/dL (1.3-2.7)
[2017-04-21 23:00] LABS: GLUCOSE 84 mg/dL (70-99)
[2017-04-21 23:01] LABS: ANION GAP 13 MEQ/L (2-14)
[2017-04-21 23:02] LABS: TOTAL BILIRUBIN 0.6 mg/dL (0.0-1.0)
[2017-04-21 23:04] LABS: ALKALINE PHOSPHATASE 110 IU/L (3-129); GFR ESTIMATE (CALCULATED) > 59 mL/min/
[2017-04-21 23:05] LABS: UREA NITROGEN (BUN) 8 mg/dL (9-23)
[2017-04-21 23:12] LABS: TROP-I INTERPRETATION NEGATIVE; TROPONIN-I < 0.01 ng/mL (0.0-0.30)
[2017-04-21] MEDS ORDERED: ZOFRAN ODT4 MG PO (23:26)
[2017-04-21] MEDS ORDERED: BENADRYL ALLERG25 MG PO (23:26)
[2017-04-22 00:27] VITALS: BP 188/106
== END 2017-04-22 00:27 | disposition home or self-care (01) ==
LOC: EME → EDBD 21:55 → EME 04-22 00:27
PROVIDERS: Emergency Medicine
DX: K52.9 Noninfective gastroenteritis and colitis, unspecified (principal); I10 Essential (primary) hypertension; S80.861A Insect bite (nonvenomous), right lower leg, initial encounter; S80.862A Insect bite (nonvenomous), left lower leg, initial encounter; W57.XXXA Bitten or stung by nonvenomous insect and other nonvenomous arthropods, initial encounter; J44.9 Chronic obstructive pulmonary disease, unspecified; E78.5 Hyperlipidemia, unspecified; K21.9 Gastro-esophageal reflux disease without esophagitis; I25.10 Atherosclerotic heart disease of native coronary artery without angina pectoris; I25.2 Old myocardial infarction; F41.9 Anxiety disorder, unspecified; F32.9 Major depressive disorder, single episode, unspecified; I71.4 Abdominal aortic aneurysm, without rupture; Z98.61 Coronary angioplasty status; Z85.828 Personal history of other malignant neoplasm of skin; Z86.73 Personal history of transient ischemic attack (TIA), and cerebral infarction without residual deficits; F17.200 Nicotine dependence, unspecified, uncomplicated; Z88.8 Allergy status to other drugs, medicaments and biological substances
CPT/HCPCS: 71010; 80053; 83735; 83880; 84484; 85025; 87493; 93005; 94640; 99281; 99285

== ENCOUNTER 2017-05-02 09:39 | Day surgery (SDC) | payer OTHER ==
[~2017-05-02] VITALS: Ht 179.1 cm; Wt 83.9 kg
[~2017-05-02 09:39] MED LIST changes: +BENADRYL ALLERG25 MG PO; +CARDIZEM120 MG PO; +ZOFRAN ODT4 MG PO
== END 2017-05-02 20:25 | disposition home or self-care (01) ==
LOC: CATH 09:39
DX: R94.39 Abnormal result of other cardiovascular function study (principal); I10 Essential (primary) hypertension; Z79.01 Long term (current) use of anticoagulants; Z53.09 Procedure and treatment not carried out because of other contraindication
CPT/HCPCS: J1644

== ENCOUNTER 2017-05-26 10:02 | Day surgery (SDC) | payer OTHER ==
[2017-05-26 10:54] LABS: HEMATOCRIT 53.4 % (38.0-50.0); HEMOGLOBIN 18.3 G/DL (12.5-16.6); MCH 32.5 PG (29.0-34.0); MCHC 34.3 G/DL (30.0-36.0); MCV 94.8 FL (86-99); PLATELET COUNT 203 K/uL (156-360); RBC DIS.WIDTH-CV 13.6 % (11.8-14.6); RBC DIS.WIDTH-SD 47.2 % (39-53); RED BLOOD COUNT 5.63 M/uL (4.00-5.50); WHITE BLOOD COUNT 4.7 K/uL (4.1-10.2)
[2017-05-26 11:55] LABS: CHLORIDE 97 mEq/L (99-109); POTASSIUM 4.2 mEq/L (3.7-5.4); SODIUM 134 mEq/L (136-147)
[2017-05-26 11:56] LABS: GLUCOSE 93 mg/dL (70-99)
[2017-05-26 12:00] LABS: CREATININE 1.2 mg/dL (0.6-1.3); GFR ESTIMATE (CALCULATED) > 59 mL/min/ (58.99-99999)
[2017-05-26 12:01] LABS: UREA NITROGEN (BUN) 12 mg/dL (9-23)
== END 2017-05-26 18:00 | disposition home or self-care (01) ==
LOC: CATH 10:02
PROVIDERS: Internal Medicine Cardiovascular Disease
PROC: B2111ZZ Fluoroscopy of Multiple Coronary Arteries using Low Osmolar Contrast (ICD-10-PCS; principal; 2017-05-26)
PROC: 4A023N7 Measurement of Cardiac Sampling and Pressure, Left Heart, Percutaneous Approach (ICD-10-PCS; principal; 2017-05-26)
DX: I25.10 Atherosclerotic heart disease of native coronary artery without angina pectoris (principal); I25.82 Chronic total occlusion of coronary artery; I48.0 Paroxysmal atrial fibrillation; I10 Essential (primary) hypertension; E78.5 Hyperlipidemia, unspecified; Z79.01 Long term (current) use of anticoagulants; Z86.73 Personal history of transient ischemic attack (TIA), and cerebral infarction without residual deficits; Z87.891 Personal history of nicotine dependence
CPT/HCPCS: 80048; 85027; C1769; C1887; J1200; J1644; J2250; J3010

== ENCOUNTER 2017-07-30 18:00 | Emergency (ER) | payer OTHER ==
[~2017-07-30] VITALS: Ht 177.8 cm; Wt 77.0 kg
[2017-07-30 19:01] LABS: BASOPHIL (%) 0.4 % (0-1); EOSINOPHIL (%) 0.2 % (0-5); HEMATOCRIT 43.9 % (38.0-50.0); HEMOGLOBIN 15.3 G/DL (12.5-16.6); IMMATURE GRANULOCYTE (%) 0.5 % (0.0-0.7); LYMPHOCYTE COUNT 1.2 K/uL (1.0-2.8); MCH 33.9 PG (29.0-34.0); MCHC 34.9 G/DL (30.0-36.0); MCV 97.3 FL (86-99); MONOCYTE (%) 7.4 % (3-12); MONOCYTE COUNT 0.7 K/uL (0-0.8); NEUTROPHIL (%) 79.5 % (45-76); NEUTROPHIL COUNT 7.7 K/uL (1.8-6.4); PLATELET COUNT 221 K/uL (156-360); RBC DIS.WIDTH-CV 14.7 % (11.8-14.6); RBC DIS.WIDTH-SD 52.5 % (39-53); RED BLOOD COUNT 4.51 M/uL (4.00-5.50); WHITE BLOOD COUNT 9.7 K/uL (4.1-10.2)
[2017-07-30 19:12] LABS: CHLORIDE 102 mEq/L (99-109); POTASSIUM 4.6 mEq/L (3.7-5.4); SODIUM 139 mEq/L (136-147)
[2017-07-30 19:14] LABS: GLUCOSE 117 mg/dL (70-99)
[2017-07-30 19:18] LABS: CREATININE 1.2 mg/dL (0.6-1.3); GFR ESTIMATE (CALCULATED) > 59 mL/min/ (58.99-99999)
[2017-07-30 19:19] LABS: UREA NITROGEN (BUN) 9 mg/dL (9-23)
[2017-07-30 19:50] LABS: APPEARANCE CLOUDY ((CLEAR)); BILIRUBIN NEGATIVE; BLOOD LARGE; GLUCOSE (STRIP) 50; KETONES NEGATIVE; LEUKOCYTES MODERATE; NITRITE NEGATIVE; PROTEIN (STRIP) >=500; SPECIFIC GRAVITY 1.015 (1.000-1.030); UROBILINOGEN 0.2 MG/DL (0.2-1.0)
[2017-07-30 19:53] LABS: COLOR RED ((YELLOW))
[2017-07-30 20:08] LABS: BACTERIA NONE SEEN /HPF; EPITHELIAL CELLS NONE SEEN /HPF; MUCUS NONE SEEN /LPF; RED BLOOD CELLS TNTC /HPF (0-5); WHITE BLOOD CELLS TNTC /HPF (0-5)
[2017-07-30] MEDS ORDERED: PYRIDIUM200 MG PO (21:34)
[2017-07-30] MEDS ORDERED: BACTRIM,SEPT1 TABLET PO (21:34)
[2017-07-30 22:15] VITALS: BP 162/99
== END 2017-07-30 22:21 | disposition home or self-care (01) ==
LOC: EME 18:00
PROVIDERS: Emergency Medicine
DX: N39.0 Urinary tract infection, site not specified (principal); N41.9 Inflammatory disease of prostate, unspecified; R31.9 Hematuria, unspecified; E78.5 Hyperlipidemia, unspecified; I11.0 Hypertensive heart disease with heart failure; I50.9 Heart failure, unspecified; I25.2 Old myocardial infarction; F32.9 Major depressive disorder, single episode, unspecified; K21.9 Gastro-esophageal reflux disease without esophagitis; Z86.73 Personal history of transient ischemic attack (TIA), and cerebral infarction without residual deficits; Z85.828 Personal history of other malignant neoplasm of skin; Z85.118 Personal history of other malignant neoplasm of bronchus and lung; F17.200 Nicotine dependence, unspecified, uncomplicated; I25.10 Atherosclerotic heart disease of native coronary artery without angina pectoris; J44.9 Chronic obstructive pulmonary disease, unspecified
CPT/HCPCS: 80048; 81003; 85025; 87077; 87086; 87186; 99281; 99285; J7030

== ENCOUNTER 2017-08-01 15:44 | Emergency (ER) | payer OTHER ==
[~2017-08-01] VITALS: Ht 179.1 cm; Wt 76.7 kg
[~2017-08-01 15:44] MED LIST changes: +BACTRIM,SEPT1 TABLET PO; +PYRIDIUM200 MG PO
[2017-08-01] MEDS ORDERED: BACTRIM,SEPT1 TABLET PO (17:12)
[2017-08-01 17:54] VITALS: BP 150/81
== END 2017-08-01 17:56 | disposition home or self-care (01) ==
LOC: EME 15:44
DX: N39.0 Urinary tract infection, site not specified (principal); Z87.440 Personal history of urinary (tract) infections; K21.9 Gastro-esophageal reflux disease without esophagitis; J44.9 Chronic obstructive pulmonary disease, unspecified; I10 Essential (primary) hypertension; E78.5 Hyperlipidemia, unspecified; I25.10 Atherosclerotic heart disease of native coronary artery without angina pectoris; I25.2 Old myocardial infarction; F41.9 Anxiety disorder, unspecified; F32.9 Major depressive disorder, single episode, unspecified; F17.200 Nicotine dependence, unspecified, uncomplicated; Z85.118 Personal history of other malignant neoplasm of bronchus and lung; Z85.828 Personal history of other malignant neoplasm of skin; Z86.73 Personal history of transient ischemic attack (TIA), and cerebral infarction without residual deficits; Z88.8 Allergy status to other drugs, medicaments and biological substances

== ENCOUNTER 2017-11-18 13:02 | Emergency (ER) | payer OTHER ==
[~2017-11-18] VITALS: Ht 175.3 cm; Wt 74.1 kg
[2017-11-18 14:12] LABS: BASOPHIL (%) 0.5 % (0-1); BASOPHIL COUNT 0.1 K/uL (0-0.1); EOSINOPHIL (%) 0.6 % (0-5); EOSINOPHIL COUNT 0.1 K/uL (0-0.3); HEMATOCRIT 38.4 % (38.0-50.0); HEMOGLOBIN 12.3 G/DL (12.5-16.6); IMMATURE GRANULOCYTE (%) 0.2 % (0.0-0.7); LYMPHOCYTE (%) 12.5 % (15-42); LYMPHOCYTE COUNT 1.6 K/uL (1.0-2.8); MCH 29.1 PG (29.0-34.0); MCV 90.8 FL (86-99); MONOCYTE COUNT 0.8 K/uL (0-0.8); NEUTROPHIL (%) 80.2 % (45-76); NEUTROPHIL COUNT 10.2 K/uL (1.8-6.4); PLATELET COUNT 282 K/uL (156-360); RBC DIS.WIDTH-CV 15.8 % (11.8-14.6); RBC DIS.WIDTH-SD 52.8 % (39-53); RED BLOOD COUNT 4.23 M/uL (4.00-5.50); WHITE BLOOD COUNT 12.8 K/uL (4.1-10.2)
[2017-11-18 14:17] LABS: INTER. NORMALIZED RATIO 1.6
[2017-11-18 14:20] LABS: PTT 35.5 SEC (25-37)
[2017-11-18 14:23] LABS: ALBUMIN 3.3 g/dL (3.2-4.8); CHLORIDE 99 mEq/L (99-109); SODIUM 130 mEq/L (136-147)
[2017-11-18 14:24] LABS: MAGNESIUM 1.6 mg/dL (1.3-2.7)
[2017-11-18 14:26] LABS: GLUCOSE 86 mg/dL (70-99); TOTAL PROTEIN 7.3 g/dL (6.4-8.3)
[2017-11-18 14:28] LABS: TOTAL BILIRUBIN 0.6 mg/dL (0.0-1.0)
[2017-11-18 14:29] LABS: ALKALINE PHOSPHATASE 120 IU/L (3-129)
[2017-11-18 14:30] LABS: CREATININE 1.1 mg/dL (0.6-1.3); GFR ESTIMATE (CALCULATED) > 59 mL/min/ (58.99-99999)
[2017-11-18 14:31] LABS: AST (GOT) 19 IU/L (2-34); UREA NITROGEN (BUN) 10 mg/dL (9-23)
[2017-11-18 14:32] LABS: ALT (GPT) 12 IU/L (3-49)
[2017-11-18 14:33] LABS: TROP-I INTERPRETATION NEGATIVE; TROPONIN-I 0.02 ng/mL (0.0-0.30)
[2017-11-18 14:39] LABS: APPEARANCE CLEAR ((CLEAR)); BILIRUBIN NEGATIVE; BLOOD MODERATE; COLOR AMBER ((YELLOW)); GLUCOSE (STRIP) NEGATIVE; KETONES NEGATIVE; LEUKOCYTES MODERATE; NITRITE POSITIVE; PROTEIN (STRIP) 100; SPECIFIC GRAVITY 1.019 (1.000-1.030)
[2017-11-18 14:52] LABS: RED BLOOD CELLS RARE /HPF (0-5); WHITE BLOOD CELLS 15-20 /HPF (0-5)
[2017-11-18 14:53] LABS: BACTERIA RARE /HPF; EPITHELIAL CELLS NONE SEEN /HPF; MUCUS 1+ /LPF; UCUL ADDED? YES
[2017-11-18] MEDS ORDERED: PYRIDIUM200 MG PO (18:42)
[2017-11-18] MEDS ORDERED: ZOFRAN ODT4 MG PO (18:42)
[2017-11-18] MEDS ORDERED: REGLAN10 MG PO (18:42)
[2017-11-18] MEDS ORDERED: LEVAQUIN750 MG PO (18:42)
[2017-11-18 19:20] VITALS: BP 116/69
== END 2017-11-18 19:20 | disposition home or self-care (01) ==
LOC: EME 13:02
PROVIDERS: Emergency Medicine
DX: T83.511A Infection and inflammatory reaction due to indwelling urethral catheter, initial encounter (principal); N39.0 Urinary tract infection, site not specified; E87.1 Hypo-osmolality and hyponatremia; I48.91 Unspecified atrial fibrillation; Z91.14 Patient's other noncompliance with medication regimen; I45.10 Unspecified right bundle-branch block; I25.2 Old myocardial infarction; I11.0 Hypertensive heart disease with heart failure; Z85.118 Personal history of other malignant neoplasm of bronchus and lung; Z86.73 Personal history of transient ischemic attack (TIA), and cerebral infarction without residual deficits; F17.200 Nicotine dependence, unspecified, uncomplicated
CPT/HCPCS: 80053; 81003; 83605; 83735; 84484; 85025; 85610; 85730; 87040; 87077; 87086; 87186; 93005; 99281; 99285; J0696; J2405